=== PATIENT | female | born 1995 | race African-American/Black ===

== ENCOUNTER 2018-08-26 11:03 | Emergency (ER) | payer MEDICAID ==
[~2018-08-26] VITALS: Ht 157.5 cm; Wt 53.0 kg
[2018-08-26 12:00] VITALS: BP 127/70
== END 2018-08-26 13:34 | disposition home or self-care (01) ==
LOC: ER 11:03
DX: J02.9 Acute pharyngitis, unspecified (principal); F12.10 Cannabis abuse, uncomplicated
CPT/HCPCS: 87070; 87430; 99283